=== PATIENT | male | born 1995 | race Caucasian/White ===

== ENCOUNTER 2016-05-06 03:33 | Emergency (ER) | payer SELFPAY ==
[~2016-05-06] VITALS: Ht 180.3 cm; Wt 80.0 kg
[~2016-05-06 03:33] MED LIST: MONT10TA2 PO; PROZ20CA11 PO
[2016-05-06 03:38] VITALS: BP 143/87; PULSE 100; RESP 16; TEMP 97.4; O2SAT 98
[2016-05-06] MEDS ORDERED: PROZ20CA11 PO (04:28)
== END 2016-05-06 08:23 | disposition left against medical advice (07) ==
LOC: NED 03:33
DX: Z53.21 Procedure and treatment not carried out due to patient leaving prior to being seen by health care provider (principal)
CPT/HCPCS: 99281